=== PATIENT | female | born 1975 | race Caucasian/White ===

== ENCOUNTER → 2016-10-13 | Outpatient (CLI) | payer BC ==
[~2016-10-13] MED LIST: FLINTSTONES WIT18 MG PO; LANSINOH7 GM TOP; MOTRIN800 MG PO; PERCOCET 5-3251 EACH PO
== END | disposition disaster alternative care site (69) ==
LOC: GLAB 10:23
DX: Z32.02 Encounter for pregnancy test, result negative (principal)